=== PATIENT | female | born 1960 | race Caucasian/White ===

== ENCOUNTER 2020-04-12 10:56 | Outpatient (CLI) | payer BC, SELFPAY ==
--- NOTE | 2020-04-12 11:08 | MM_ITS ---
WS: [id number] BILATERAL SCREENING DIGITAL MAMMOGRAM WITH CAD HISTORY: SCREENING COMPARISON: 02/03/2019 and 07/31/2016 Bilateral CC and MLO views submitted. Computer aided detection analyzed. Breast composition: There are scattered areas of fibroglandular density. No suspicious masses, microc alcifications or architectural distortion. Benign calcifications. MM/[place] [id number] IMPRESSION: BI-RADS: 2-Benign FOLLOW UP: 1 Year Follow-up
== END 2020-04-12 10:57 | disposition home or self-care (01) ==
LOC: RADSHAW 11:00
PROVIDERS: Family Provider Nurse Practitioner Family; PCP Nurse Practitioner Family; Visit Provider Nurse Practitioner Family
DX: Z12.31 Encounter for screening mammogram for malignant neoplasm of breast (principal)
CPT/HCPCS: 77067

== ENCOUNTER 2020-10-29 11:42 | Outpatient (CLI) | payer BC, SELFPAY ==
--- NOTE | 2020-10-29 12:02 | XRR_ITS ---
PROCEDURE INFORMATION: Exam: XR Chest Exam date and time: 10/29/2020 12:02 PM Age: 60 years old Clinical indication: Condition or disease; Lung condition and disease; Patient HX: Pneumonia in left lung per PT, 3 weeks; Additional info: Asthmatic bronchitis TECHNIQUE: Imaging protocol: XR of the chest. Views: 2 views. COMPARISON: No relevant prior studies available. FINDINGS: Lungs: Unremarkable. No consolidation. Pleural spaces: Unremarkable. No pleural effusion. No pneumothorax. Heart/Mediastinum: Unremarkable. No cardiomegaly. Bones/joints: Unremarkable. There is a small hiatal hernia present. XR/XR chest 2V* [id number] IMPRESSION: No acute findings.
== END 2020-10-29 11:43 | disposition home or self-care (01) ==
LOC: RAD 11:49
PROVIDERS: PCP Nurse Practitioner Family; Visit Provider Nurse Practitioner Family
DX: J45.909 Unspecified asthma, uncomplicated (principal)
CPT/HCPCS: 71046

== ENCOUNTER 2021-04-08 11:37 | Emergency (ER) | payer BC, SELFPAY ==
[2021-04-08 12:05] VITALS: BP 124/65; PULSE 78; RESP 18; TEMP 37.1; O2SAT 99; BMI 27.8
[2021-04-08 13:06] LABS: Basophils % 0.6 %; Eosinophils # 0.1 10^3/uL (0.0-0.8); Eosinophils % 2.4 %; Hematocrit 34.8 % (37.0-47.0); Lymphocytes # 1.8 10^3/uL (0.8-4.8); Lymphocytes % 37.4 %; Mean Corpuscular HGB Conc 34.5 g/dL (30.0-36.0); Mean Corpuscular Hemoglobin 31.7 pg (28.0-34.0); Mean Corpuscular Volume 91.8 fl (81-99); Monocytes # 0.3 10^3/uL (0.2-0.9); Monocytes % 7.3 %; Neutrophils # 2.44 10^3/uL (1.8-7.7); Neutrophils % 52.1 %; Nucleated Red Blood Cells % 0 %; Platelet Count 189 10^3/cmm (130-400); Red Blood Count 3.79 10^6/uL (4.1-5.3); Red Cell Distribution Width 11.6 % (12.1-15.1); White Blood Count 4.7 10^3/uL (4.0-10.0)
[2021-04-08 13:19] LABS: Add Urine Microscopic? YES; Bilirubin Urine Neg (Negative); Blood Urine 3+ (Negative); Glucose Urine UA Norm (Normal); Ketones Urine 1+ (Negative); Leukocyte Esterase Urine 1+ (Negative); Nitrate Urine Positive (Negative); Protein Urine 3+ (Negative); Urine Appearance Cloudy (CLEAR); Urine Color Red (Yellow); Urobilinogen Urine 1 mg/dL (Negative); pH Urine 6.5 (5-7)
[2021-04-08 13:20] LABS: Add Urine Culture? Yes; Bacteria Urine 2+ /hpf; Mucus Urine TRACE /hpf; RBC Urine TOO NUMEROUS TO CNT /hpf (0-2)
[2021-04-08 13:23] LABS: INR 0.92 (0.8-1.2)
[2021-04-08 13:24] LABS: Partial Thromboplastin Time 26.7 SECONDS (23.9-36.7)
[2021-04-08 13:26] LABS: Alanine Aminotransferase 15 U/L (0-33); Albumin Level 3.8 g/dL (3.5-5.2); Alkaline Phosphatase 49 IU/L (35-105); Anion Gap 14.8 (5-19); Aspartate Amino Transferase 18 U/L (0-32); Blood Urea Nitrogen 10 mg/dL (6-20); Calcium 8.2 mg/dL (8.5-10.5); Carbon Dioxide 23 mmol/L (22-29); Chloride 103 mmol/L (98-107); Globulin 2.4 g/dL (1.3-4.6); Glomerular Filtration Rate 73.7 mL/min (90-130); Glucose 92 mg/dL (65-115); Osmolality Calculated 283 mOsm/kg (285-295); Potassium 3.8 mmol/L (3.5-5.1); Sodium 137 mmol/L (136-145); Total Bilirubin 0.2 mg/dL (0.15-1.2); Total Protein 6.2 g/dL (6.6-8.7)
--- NOTE | 2021-04-08 17:24 | PC.PHAR ---
pt states she takes care of her own medications-pt brought in med bottles-pt states she is no longer taking the phentermine 37.5mg daily ext med history shows last filled 03/13/21 30d/s-
--- NOTE | 2021-04-08 17:28 | W.ED.FEMALGU ---
HPI - Female Genitourinary General: Chief complaint: Vaginal Bleeding Stated complaint: EXCESSIVE VAGINAL BLEEDING/BACK PAIN Time Seen by Provider: 04/08/21 16:58 History of Present Illness: HPI Narrative: 52-year-old female presents emergency room complaining of menometrorrhagia this been going on for last 3 months. She is on lower doses of estradiol and progesterone. She continues to have heavy bleeding most of the time. She was trying to get the appointment moved up to called her primary care provider's office they advised her to go to the emergency room she not had any lightheadedness or dizziness. MD elicited complaint: vaginal bleeding and pelvic pain (Clamping) Onset (ago): month(s) Location of symptoms: vaginal Severity: moderate Quality of pain: cramping Vaginal discharge: none Vaginal bleeding: heavy Exacerbating factors: none Associated symptoms: Deny abdominal pain, short of breath, fevers/chills, headache(s), nausea, rash, seizures, syncope, vaginal discharge or weakness Treatment prior to arrival: other (Estradiol medroxyprogesterone) Review of Systems Const: Denies: fever(s), chills, body aches, change in appetite, fatigue or malaise ENMT: Denies: throat pain, ear or mastoid pain, nasal discharge or nasal congestion Card: Denies: syncope Resp: Denies: dyspnea, productive cough or non-productive cough GI: Denies: abdominal pain or nausea : Reports: vaginal bleeding and pelvic pain (Cramping); Denies: vaginal discharge Skin/Breast: Denies: rash or pruritus Neuro: Denies: headache(s) PFS ED PFSH: Medical History (Updated 04/11/21 @ 12:32 by Chad Harrison DO) Menometrorrhagia Social History (Updated 04/11/21 @ 12:32 by Chad Harrison DO) Smoking and tobacco status: never smoked Alcohol intake: current Alcohol intake frequency: 0-2 Drinks per Day Physical Exam Const: COMMON NORMALS: no acute distress GENERAL APPEARANCE: cooperative and comfortable ORIENTATION/CONSCIOUSNESS: Yes awake, Yes oriented to person, Yes oriented to place and Yes oriented to time HENMT: COMMON NORMALS: normocephalic, atraumatic and hearing grossly normal bilaterally HEAD & SCALP: normocephalic and atraumatic Neck/C-Spine: COMMON NORMALS: no JVD Resp: COMMON NORMALS: normal respiratory effort, No retractions, No use of accessory muscles and clear to auscultation bilaterally AUSCULTATION: clear to auscultation bilaterally Cardio: COMMON NORMALS: no JVD, regular rate, regular rhythm and No murmurs present (Cardio) RATE: regular rate RHYTHM: regular rhythm GI: COMMON NORMALS: Soft to palpation and No hepatosplenomegaly present AUSCULTATION: Yes normoactive bowel sounds PALPATION: Yes Soft to palpation, No Tenderness to palpation present (GI), No Guarding due to palpation present (GI) and Yes No hepatosplenomegaly present Extremity: COMMON NORMALS: normal to inspection, capillary refill normal, no clubbing, cyanosis or edema, no calf tenderness and no pedal edema Neuro: SENSORIUM/ORIENTATION: Yes oriented to person, Yes oriented to place and Yes oriented to time Skin: COMMON NORMALS: no rashes or lesions noted GENERAL SKIN EXAM: no rashes or lesions noted Course Vital Signs: Vital signs: Vital Signs Temperature 98.8 F 04/08/21 12:05 Pulse Rate 80 04/08/21 17:44 Respiratory Rate 16 04/08/21 17:44 Blood Pressure 119/70 04/08/21 17:44 Pulse Oximetry 96 04/08/21 17:44 MDM - Female MDM Narrative: Medical decision making narrative: Patient has menometrorrhagia for several months now. Continues to have a intermittent heavy bleeding. Initially best served by stopping the low-dose medroxyprogesterone estradiol and starting a 10-day course of medroxyprogesterone at 10 mg daily. Advised her if she did not have cessation of bleeding within 3 days to increase to 20 mg daily rating 110 mg tablet twice daily. We will set her up for an outpatient pelvic ultrasound and referral to gynecology for further evaluation she is worsening problems return. Reviewed labs on the chart patient has no sign of anemia at this point. Lab Data: Labs: Lab Results 04/08/21 04/08/21 04/08/21 12:13 12:30 12:30 WBC 4.7 10^3/uL 10^3/ uL (4.0-10.0) RBC 3.79 10^6/uL L 10 ^6/uL (4.1-5.3) Hgb 12.0 g/dL g/dL (11.5-15.3) Hct 34.8 % L % (37.0-47.0) MCV 91.8 fl fl (81-99) MCH 31.7 pg pg (28.0-34.0) MCHC 34.5 g/dL g/dL (30.0-36.0) RDW 11.6 % L % (12.1-15.1) Plt Count 189 10^3/cmm 10^3 /cmm (130-400) MPV 10.0 fL fL (7.4-10.4) Neut % (Auto) 52.1 % % Lymph % (Auto) 37.4 % % [place] % (Auto) 7.3 % % Eos % (Auto) 2.4 % % Baso % (Auto) 0.6 % % Neut # (Auto) 2.44 10^3/uL 10^3 /uL (1.8-7.7) Lymph # (Auto) 1.8 10^3/uL 10^3/ uL (0.8-4.8) [place] # (Auto) 0.3 10^3/uL 10^3/ uL (0.2-0.9) Eos # (Auto) 0.1 10^3/uL 10^3/ uL (0.0-0.8) Baso # (Auto) 0.0 10^3/uL 10^3/ uL (0.0-0.1) Nucleated RBC % (a uto) 0 % % Nucleated RBCs # 0.0 /100WBC /100W BC PT 12.70 SECONDS SEC ONDS (12.1-14.9) INR 0.92 (0.8-1.2) APTT 26.7 SECONDS SECO NDS (23.9-36.7) Sodium Potassium Chloride Carbon Dioxide Anion Gap BUN Creatinine GFR Calculation Glucose Calculated Osmolal ity Calcium Total Bilirubin AST ALT Alkaline Phosphata se Total Protein Albumin Globulin Urine Color Red (Yellow) Urine Appearance Cloudy (CLEAR) Urine pH 6.5 (5-7) Ur Specific Gravit y 1.020 (1.005-1.030) Urine Protein 3+ H (Negative) Urine Glucose (UA) Norm (Normal) Urine Ketones 1+ H (Negative) Urine Blood 3+ H (Negative) Urine Nitrate Positive H (Negative) Urine Bilirubin Neg (Negative) Urine Urobilinogen 1 mg/dL H mg/dL (Negative) Ur Leukocyte [place] ase 1+ H (Negative) Urine RBC Too numerous to c nt /hpf H /hpf (0-2) Urine WBC 5-10 /hpf H /hpf (0-5) Ur Squamous Epith Cells 5-10 /hpf H /hpf (0-5) Amorphous Sediment Not Reportable Urine Bacteria 2+ /hpf H /hpf (NONE) Urine Mucus Trace /hpf /hpf 04/08/21 12:30 WBC RBC Hgb Hct MCV MCH MCHC RDW Plt Count MPV Neut % (Auto) Lymph % (Auto) [place] % (Auto) Eos % (Auto) Baso % (Auto) Neut # (Auto) Lymph # (Auto) [place] # (Auto) Eos # (Auto) Baso # (Auto) Nucleated RBC % (a uto) Nucleated RBCs # PT INR APTT Sodium 137 mmol/L mmol/L (136-145) Potassium 3.8 mmol/L mmol/L (3.5-5.1) Chloride 103 mmol/L mmol/L (98-107) Carbon Dioxide 23 mmol/L mmol/L (22-29) Anion Gap 14.8 (5-19) BUN 10 mg/dL mg/dL (6-20) Creatinine 0.8 mg/dL mg/dL (0.5-0.9) GFR Calculation 73.7 mL/min L mL/ min (90-130) Glucose 92 mg/dL mg/dL (65-115) Calculated Osmolal ity 283 mOsm/kg L mOs m/kg (285-295) Calcium 8.2 mg/dL L mg/dL (8.5-10.5) Total Bilirubin 0.2 mg/dL mg/dL (0.15-1.2) AST 18 U/L U/L (0-32) ALT 15 U/L U/L (0-33) Alkaline Phosphata se 49 IU/L IU/L (35-105) Total Protein 6.2 g/dL L g/dL (6.6-8.7) Albumin 3.8 g/dL g/dL (3.5-5.2) Globulin 2.4 g/dL g/dL (1.3-4.6) Urine Color Urine Appearance Urine pH Ur Specific Gravit y Urine Protein Urine Glucose (UA) Urine Ketones Urine Blood Urine Nitrate Urine Bilirubin Urine Urobilinogen Ur Leukocyte [place] ase Urine RBC Urine WBC Ur Squamous Epith Cells Amorphous Sediment Urine Bacteria Urine Mucus Discharge Plan Discharge Patient Disposition: Home Clinical Impression: Menometrorrhagia Condition: Stable Prescriptions: New medroxyprogesterone 10 mg tablet 10 mg PO DAILY 10 Days Qty: 20 RF: 0 Discontinued medroxyprogesterone 2.5 mg tablet 2.5 mg PO QAM RF: 0 estradiol 1 mg tablet 1 mg PO QAM RF: 0 No Action multivitamin Tablet 1 tab PO DAILY RF: 0 oxybutynin chloride 15 mg tablet extended release 24 hr 15 mg PO QAM RF: 0 cetirizine 10 mg tablet 10 mg PO QAM RF: 0 pantoprazole 40 mg tablet,delayed release (DR/EC) 40 mg PO QAM RF: 0 albuterol sulfate 90 mcg/actuation HFA aerosol inhaler 2 puff INHALATION Q4H PRN (Reason: Shortness Of Breath) RF: 0 fluticasone propionate 50 mcg/actuation spray,suspension 2 spray INTRANASAL DAILY PRN (Reason: Allergy Symptoms) RF: 0 Tylenol Ex Str Rapid Release 500 mg Tablet 1,000 mg PO Q4H PRN (Reason: Pain) RF: 0 ibuprofen 200 mg Tablet 1,200 mg PO QAM PRN (Reason: Pain) RF: 0 Discharge Orders: Discharge ED (Routine); Ordered 04/08/21 Ordered By: Chad Harrison Referrals: Sara Milligan APN [Primary Care Provider] - Patient Instructions: Opioid Safety Activity Restrictions/Additional Instructions: software implementation project manager will make arrangements for you to have a pelvic ultrasound and a referral to gynecology. Coding Level of Care Code ED Manager Hardware for Ondina Encarnacion
[2021-04-08 17:44] VITALS: BP 119/70; PULSE 80; RESP 16; O2SAT 96
--- NOTE | 2021-04-10 13:53 | DCPLANNER ---
distribution warehouse manager had message to schedule a follow up appointment for patient with [facility]. distribution warehouse manager called [facility], spoke with [facility], gave clinic patients information. distribution warehouse manager was told that patients information would be printed and reviewed. Clinic will call patient with appointment information. distribution warehouse manager also had message to schedule an out patient pelvic ultrasound. distribution warehouse manager faxed signed order to centralized scheduling, who will call patient with appointment information.
--- NOTE | 2021-04-23 08:20 | DCPLANNER ---
Patient has an appointment scheduled for Wednesday, May 05, 2021 at 8:[address] Rose at [facility]. Clinic will call patient with appointment information.
--- NOTE | 2021-05-08 07:07 | DCPLANNER ---
Addendum entered by Kirsten Grimm 05/29/21 15:13: Patient had an outpatient US scheduled for 05.13.21 - patient did attend appointment. Original Note: Patient had a follow up appointment scheduled for 05.05.[address] Rose at [facility] - patient did attend appointment. Patient has a pelvic ultrasound scheduled for Thursday, May 13, 2021 at 3:30, centralized scheduling will call patient with appointment information.
== END 2021-04-08 17:45 | disposition home or self-care (01) ==
PROVIDERS: Physician Assistant; Emergency Provider Family Medicine; PCP Nurse Practitioner Family
DX: N92.1 Excessive and frequent menstruation with irregular cycle (principal)
CPT/HCPCS: 80053; 81001; 85025; 85610; 85730; 87077; 87086; 87186; 99283

== ENCOUNTER → 2021-05-05 09:33 | Outpatient (BNVA) | payer BC, SELFPAY | PROVIDERS: PCP Nurse Practitioner Family; Referring Provider Nurse Practitioner Family; Visit Provider Obstetrics & Gynecology | DX: Z12.4 Encounter for screening for malignant neoplasm of cervix (principal); N95.0 Postmenopausal bleeding | CPT/HCPCS: 87624; 88305 ==

== ENCOUNTER → 2021-05-13 15:17 | Outpatient (BNVA) | payer BC, SELFPAY | PROVIDERS: PCP Nurse Practitioner Family; Visit Provider Obstetrics & Gynecology | DX: N95.0 Postmenopausal bleeding (principal) | CPT/HCPCS: 76830 ==

== ENCOUNTER → 2021-05-31 11:17 | Outpatient (BNVA) | payer BC, SELFPAY | PROVIDERS: PCP Nurse Practitioner Family; Visit Provider Registered Nurse Neonatal Intensive Care | DX: Z20.822 Contact with and (suspected) exposure to COVID-19 (principal); N95.0 Postmenopausal bleeding | CPT/HCPCS: 87635 ==

== ENCOUNTER 2021-06-03 09:55 | Day surgery (SDC) | payer BC, SELFPAY ==
[2021-06-02 15:35] VITALS: BMI 27.8
[2021-06-03 10:17] VITALS: BP 91/64; PULSE 70; RESP 18; TEMP 36.1; O2SAT 99
[2021-06-03] MEDS: sodium chloride 0.9% 1,000 ML 30 ML IV (10:31)
[2021-06-03 10:50] LABS: Basophils % 0.7 %; Eosinophils # 0.1 10^3/uL (0.0-0.8); Eosinophils % 1.2 %; Hematocrit 33.7 % (37.0-47.0); Hemoglobin 10.2 g/dL (11.5-15.3); Lymphocytes % 47.7 %; Mean Corpuscular HGB Conc 30.3 g/dL (30.0-36.0); Mean Corpuscular Hemoglobin 24.9 pg (28.0-34.0); Mean Corpuscular Volume 82.4 fl (81-99); Mean Platelet Volume 10.4 fL (7.4-10.4); Monocytes # 0.3 10^3/uL (0.2-0.9); Monocytes % 6.2 %; Neutrophils # 1.83 10^3/uL (1.8-7.7); Nucleated Red Blood Cells % 0 %; Platelet Count 244 10^3/cmm (130-400); Red Blood Count 4.09 10^6/uL (4.1-5.3); Red Cell Distribution Width 14.6 % (12.1-15.1); White Blood Count 4.2 10^3/uL (4.0-10.0)
--- NOTE | 2021-06-03 11:57 | ANES.PREANE2 ---
Pre-Anesthetic Assessment Height/Weight: Height 1.6 m Weight 71.214 kg Temp Pulse Resp BP Pulse Ox 97 F L 70 18 91/64 99 06/03/21 10:17 06/03/21 10:17 06/03/21 10:17 06/03/21 10:17 06/03/21 10:17 Preop Diagnosis: PMB Operation Date: 06/03/21 10:35 Proposed Procedures p Hysteroscopy w/ Myosure 58198/35607/n95.0(Not Applicable) - Justine Rose MD s Dilation And Curettage (D&C)(Not Applicable) - Justine Rose MD Familial anesthetic complications: PONV after colonoscopy Was Beta Lizbeth taken within 24 hours: N/A Was Clonidine taken within 24 hours: N/A Last intake: Intake Last Liquid Date 06/02/21 Last Liquid Time 20:00 Last Solid Date 06/02/21 Last Solid Time 17:30 Social No alcohol and No tobacco Exam alert, oriented x 3, clear to auscultation bilaterally and regular rate & rhythm Airway Mallampati: Class II Dentition: full GI Hiatal hernia - patient states she gets quite severe GERD at night laying flat. Anesthetic Plan ASA status: 2 Anesthesia: General Other: ETT for hiatal hernia w/ symptomatic GERD with recumbent positioning Medications/Allergies Home Medications Medication Instructions Recorded Confirmed Last Taken Type acetaminophen 500 mg tablet 1,000 mg PO Q4H PRN 04/08/21 06/03/21 06/01/21 History multivitamin 1 tab PO DAILY 04/08/21 06/03/21 06/02/21 History oxybutynin chloride 15 mg 15 mg PO QAM 04/08/21 06/03/21 06/02/21 History tablet,extended release 24 hr pantoprazole 40 mg tablet,delayed 40 mg PO QAM 04/08/21 06/03/21 06/02/21 History release medroxyprogesterone 10 mg tablet 10 mg PO DAILY 05/05/21 06/03/21 06/02/21 History Allergies Allergy/AdvReac Type Severity Reaction Status Date / Time propofol Allergy Severe ADR-Nausea Verified 06/03/21 10:11 azithromycin Allergy Unknown Verified 06/03/21 10:11 naproxen Allergy Unknown Verified 06/03/21 10:11 Current Medications Generic Name Dose Route Start Last Admin Trade Name Ric PRN Reason Stop Dose Admin Sodium Chloride 1,000 mls @ 30 mls/hr 06/03/21 10:15 06/03/21 10:31 Sodium Chloride 0.9% IV 06/04/21 10:14 30 mls/hr .Q24H ASHLEIGH Administration PFSH Anesthesia Medical History Hypercholesteremia Menometrorrhagia No pertinent past medical history Surgical History History of bilateral tubal ligation at age 23 Family History Mother Cancer Colon Clotting disorder Family/Other Diabetes Paternal aunts and uncles Brother Hypertension Denies family history of CAD (coronary artery disease) Hyperlipidemia Chronic kidney disease (CKD) Bleeding disorder Stroke Female Reproductive History Date of last menstrual period: 03/26/21 Data Anesthesia : 06/03/21 10:30 06/03/21 10:30 Short CBC 06/03/21 Range/Units 10:30 WBC 4.2 (4.0-10.0) 10^3/uL Hgb 10.2 L (11.5-15.3) g/dL Hct 33.7 L (37.0-47.0) % MCV 82.4 (81-99) fl Plt Count 244 (130-400) 10^3/cmm Neut % (Auto) 44.0 % Neut # (Auto) 1.83 (1.8-7.7) 10^3/uL Blood Bank 06/03/21 10:38 Blood Type O Positive Rho(D) Type Positive Antibody Screen Negative Cardiac Studies: No Data to Display
--- NOTE | 2021-06-03 12:18 | W.PM.OPSUD ---
Surgery/Procedure H&P Update DATE OF PROCEDURE: June 03, 2021 DATE H&P PERFORMED: 05/15/21 H&P UPDATE INFORMATION: I have reviewed H&P completed within last 30 days, I have examined patient prior to procedure and No changes to prior documentation PREOP DIAGNOSIS: PMB PLANNED PROCEDURE: Operation Date: 06/03/21 10:35 Proposed Procedures p Hysteroscopy w/ Myosure 97794/36815/n95.0(Not Applicable) - Justine Rose MD s Dilation And Curettage (D&C)(Not Applicable) - Justine Rose MD Related Problem List Diagnoses (1) PMB (postmenopausal bleeding):
[2021-06-03 14:50] VITALS: BP 110/69; PULSE 84; RESP 20; TEMP 36.6; O2SAT 99
[2021-06-03 14:55] VITALS: BP 111/57; PULSE 80; RESP 18; O2SAT 96
--- NOTE | 2021-06-03 14:59 | P.OP_ITS ---
Operative Report Date of procedure: June 03, 2021 Pre-op diagnosis: Preop Diagnosis PMB Post-op diagnosis: same Post-op findings: uterine leiomyoma Procedure done: hysteroscopy, dilation and curettage with myosure Specimens removed/disposition: endometrial curettings to pathology Surgeon: Justine Rose Anesthesia: MAC Estimated blood loss (mL): 5 IV fluids (mL): 700 Urine output (mL): 0 Complications: none Findings: 8 week sized uterus with anterior and posterior fibroids Procedure: The patient was taken to the operating room where monitored anesthesia was administered and to be adequate. She was prepped and draped in the normal sterile fashion in the dorsal lithotomy position in [facility]. A weighted speculum was placed into the vagina and the anterior lip of the cervix grasped with a single-tooth tenaculum. The uterus was sounded to 8 cm. The cervix was dilated to 16 [place]. The hysteroscope was advanced into the endometrial cavity. There was an anterior and posterior fibroid visualized. The MyoSure device was activated and the tissue was removed. Pictures were taken pre and post procedure. All instruments were removed. The patient tolerated the procedure well. Sponge lap and needle counts were correct x3. She was taken to the recovery room in stable condition.
[2021-06-03 15:00] VITALS: BP 129/51; PULSE 75; RESP 18; TEMP 36.6; O2SAT 100
--- NOTE | 2021-06-03 15:05 | P.DS_ITS ---
Discharge Providers Date of Admission: 06/03/21 Date of Discharge: June 03, 2021 Attending Provider at Admission: Milton Attending Provider at Discharge: Justine Rose MD Primary Care Provider: Sara Milligan APN Diagnoses at Discharge Discharge Diagnosis (1) PMB (postmenopausal bleeding): Status: Acute Reason for Visit Reason for Visit: postmenopausal bleeding Hospital Course Hospital Course The patient was admitted for surgery. She did well postoperatively and was ready for discharge Discharge Data Studies Completed and Pending Pending at discharge Category Date Time Status ES surgery / GI images Routine Exams 06/03/21 11:32 Taken Pathology: Surgical [PTH] Routine Pth 06/03/21 14:53 Ordered Laboratory Results WBC 4.2 10^3/uL (4.0-10.0) 06/03/21 10:30 RBC 4.09 10^6/uL (4.1-5.3) L 06/03/21 10:30 Hgb 10.2 g/dL (11.5-15.3) L 06/03/21 10:30 Hct 33.7 % (37.0-47.0) L 06/03/21 10:30 MCV 82.4 fl (81-99) 06/03/21 10:30 MCH 24.9 pg (28.0-34.0) L 06/03/21 10:30 MCHC 30.3 g/dL (30.0-36.0) 06/03/21 10:30 RDW 14.6 % (12.1-15.1) 06/03/21 10:30 Plt Count 244 10^3/cmm (130-400) 06/03/21 10:30 MPV 10.4 fL (7.4-10.4) 06/03/21 10:30 Neut % (Auto) 44.0 % 06/03/21 10:30 Lymph % (Auto) 47.7 % 06/03/21 10:30 [place] % (Auto) 6.2 % 06/03/21 10:30 Eos % (Auto) 1.2 % 06/03/21 10:30 Baso % (Auto) 0.7 % 06/03/21 10:30 Neut # (Auto) 1.83 10^3/uL (1.8-7.7) 06/03/21 10:30 Lymph # (Auto) 2.0 10^3/uL (0.8-4.8) 06/03/21 10:30 [place] # (Auto) 0.3 10^3/uL (0.2-0.9) 06/03/21 10:30 Eos # (Auto) 0.1 10^3/uL (0.0-0.8) 06/03/21 10:30 Baso # (Auto) 0.0 10^3/uL (0.0-0.1) 06/03/21 10:30 Nucleated RBC % (auto) 0 % 06/03/21 10:30 Nucleated RBCs # 0.0 /100WBC 06/03/21 10:30 Sodium Cancelled 06/03/21 10:30 Potassium Cancelled 06/03/21 10:30 Chloride Cancelled 06/03/21 10:30 Carbon Dioxide Cancelled 06/03/21 10:30 Anion Gap Cancelled 06/03/21 10:30 BUN Cancelled 06/03/21 10:30 Creatinine Cancelled 06/03/21 10:30 GFR Calculation Cancelled 06/03/21 10:30 Glucose Cancelled 06/03/21 10:30 Calculated Osmolality Cancelled 06/03/21 10:30 Calcium Cancelled 06/03/21 10:30 Blood Type O Positive 06/03/21 10:38 Rho(D) Type Positive 06/03/21 10:38 Antibody Screen Negative 06/03/21 10:38 Vitals Last Vital Signs Temp 97.8 F 06/03/21 15:00 Pulse 75 06/03/21 15:00 Resp 18 06/03/21 15:00 BP 129/51 06/03/21 15:00 Pulse Ox 100 06/03/21 15:00 Discharge Plan Discharge Patient Disposition: Home Condition: Stable Prescriptions: Continued medroxyprogesterone 10 mg tablet 10 mg PO DAILY 0RF multivitamin Tablet 1 tab PO DAILY 0RF oxybutynin chloride 15 mg tablet extended release 24 hr 15 mg PO QAM 0RF pantoprazole 40 mg tablet,delayed release (DR/EC) 40 mg PO QAM 0RF acetaminophen 500 mg Tablet 1,000 mg PO Q4H PRN (Reason: Pain) 0RF Discharge Orders: Discharge Order (Routine); Ordered 06/03/21 Ordered By: Justine Rose Discharge Attestations Time Spent in Discharge Care*: less than 30 min Quality Metrics Clinical Quality Measures [ No reported AMI, CVA or VTE this stay] Coding Level of Care Code Acute Chg FW DC note Diagnoses PMB (postmenopausal bleeding) N95.0
[2021-06-03 15:14] VITALS: BP 103/65; PULSE 69; RESP 18; TEMP 36.6; O2SAT 99
--- NOTE | 2021-06-03 15:28 | ANE.PACU2 ---
Inpatient post-anesthesia follow up: Airway intact: Yes Vital signs: Temperature 97.9 F Pulse Rate 69 Respiratory Rate 18 Blood Pressure 103/65 Pulse Oximetry 99 Oxygen Delivery Me thod Room Air Oxygen Flow Rate Fraction of Inspir ed Oxygen Hydration adequate: Yes Nausea and vomiting: No Pain level: 2 Mental status: Baseline
[2021-06-03 15:36] VITALS: BP 117/61; PULSE 64; RESP 18; O2SAT 100
== END 2021-06-03 15:47 | disposition home or self-care (01) ==
PROVIDERS: PCP Nurse Practitioner Family; Visit Provider Obstetrics & Gynecology
PROC: 0UDB8ZZ Extraction of Endometrium, Via Natural or Artificial Opening Endoscopic (ICD-10-PCS; CPT 58558; principal; 2021-06-03 10:25)
PROC: (CPT 58120; 2021-06-03 10:25)
DX: D25.9 Leiomyoma of uterus, unspecified (principal); N95.0 Postmenopausal bleeding; K21.9 Gastro-esophageal reflux disease without esophagitis; E78.00 Pure hypercholesterolemia, unspecified
CPT/HCPCS: 58558; 36415; 85025; 86850; 86900; 88305; 96365; J0690; J1100; J1200; J1885; J2405; J2704; J3010; J7030

== ENCOUNTER 2021-10-20 05:45 | Day surgery (SDC) | payer BC, SELFPAY ==
[2021-10-16 14:11] VITALS: BMI 28.3
[2021-10-20 06:31] VITALS: BP 125/81; PULSE 82; RESP 18; TEMP 36.2; O2SAT 96
[2021-10-20] MEDS: sodium chloride 0.9% 1,000 ML 30 ML IV (06:39)
--- NOTE | 2021-10-20 07:17 | W.PM.OPSFHP ---
Same Day Surgery H&P Indication for Procedure/HPI DATE OF PROCEDURE: October 20, 2021 CHIEF COMPLAINT/INDICATIONFOR SURGICAL PROCEDURE: Family history of colon cancer PREOP DIAGNOSIS: CP and FH PLANNED PROCEDURE: Operation Date: 10/20/21 07:45 Proposed Procedures p EGD and coloscopy 86641,90003,Z80.0,R07.89(Not Applicable) - Ramses Posada MD s Colonoscopy(Not Applicable) - Ramses Posada MD Medications/Allergies* Home Medications Medication Instructions Recorded Confirmed Type pantoprazole 40 mg tablet,delayed 40 mg PO QAM 04/08/21 10/16/21 History release acetaminophen 300 mg-codeine 30 mg 1 tab PO Q4H PRN 09/09/21 10/16/21 History tablet albuterol sulfate 90 mcg/actuation 2 puff INHALATION Q6H PRN 09/09/21 10/16/21 History aerosol inhaler cetirizine 10 mg tablet (All Day 10 mg PO DAILY 09/09/21 10/16/21 History Allergy (cetirizine)) fluticasone propionate 50 2 spray INTRANASAL DAILY PRN 09/09/21 10/16/21 History mcg/actuation nasal spray,suspension (Allergy Relief (fluticasone)) ondansetron 4 mg disintegrating 4 mg PO Q4H PRN tab 09/09/21 10/16/21 History tablet vitamin with calcium 1 tab PO DAILY 09/09/21 10/16/21 History no.72-iron 27 mg-folic acid 1 mg tablet (M-Nigel Plus) epinephrine 0.3 mg/0.3 mL 0.3 mg IM Q4H PRN 09/25/21 10/16/21 History injection, auto-injector oxybutynin chloride 15 mg 15 mg PO DAILY 09/25/21 10/16/21 History tablet,extended release 24 hr Allergies/Adverse Reactions Allergy/AdvReac Type Severity Reaction Status Date / Time propofol Allergy Severe ADR-Nausea Verified 09/25/21 08:45 azithromycin Allergy Unknown Verified 09/25/21 08:45 naproxen Allergy Unknown Verified 09/25/21 08:45 Current Medications: Generic Name Dose Route Start Last Admin Trade Name Freq PRN Reason Stop Dose Admin Sodium Chloride 1,000 mls @ 30 mls/hr 10/20/21 06:00 10/20/21 06:39 Sodium Chloride 0.9% IV 10/21/21 05:59 30 mls/hr .Q24H ASHLEIGH Administration Pertinent History/Comorbid Conditions* Medical History (Updated 09/25/21 @ 09:40 by Ramses Posada MD) Hypercholesteremia Menometrorrhagia No pertinent past medical history Surgical History (Updated 05/08/21 @ 12:36 by Justine Rose MD) History of bilateral tubal ligation at age 23 Family History (Updated 05/05/21 @ 08:25 by Merced Choe LPN) Diabetes Family/Other Paternal aunts and uncles Clotting disorder Mother Cancer Mother Colon Hypertension Brother Denies family history of CAD (coronary artery disease) Hyperlipidemia Chronic kidney disease (CKD) Bleeding disorder Stroke Social History Smoking and tobacco status: never smoked Pertinent Exam Findings alert, oriented x 3, clear to auscultation bilaterally, regular rate & rhythm, operative site marked and procedure specific exam findings Recommendations Surgery/Procedure today Coding Level of Care Code Acute Residence Supervisor for Ondina Encarnacion
--- NOTE | 2021-10-20 07:39 | ANES.PREANE2 ---
Pre-Anesthetic Assessment Height/Weight: Height 1.6 m Weight 72.575 kg Temp Pulse Resp BP Pulse Ox 97.2 F L 82 18 125/81 96 10/20/21 06:31 10/20/21 06:31 10/20/21 06:31 10/20/21 06:31 10/20/21 06:31 Preop Diagnosis: CP and FH Operation Date: 10/20/21 07:45 Proposed Procedures p EGD and coloscopy [id number],Z80.0,R07.89(Not Applicable) - Ramses Posada MD s Colonoscopy(Not Applicable) - Ramses Posada MD Familial anesthetic complications: PONV w/ a previous colonoscopy Was Beta Lizbeth taken within 24 hours: N/A Was Clonidine taken within 24 hours: N/A Last intake: Intake Last Liquid Date 10/19/21 Last Liquid Time 23:00 Last Solid Date 10/18/21 Last Solid Time 19:00 Social No alcohol and No tobacco Exam alert, oriented x 3, clear to auscultation bilaterally and regular rate & rhythm Airway Mallampati: Class II Dentition: full CV/HEM Stable Angina (? Non-cardiac) GI Gastroesophageal Reflux Disease Anesthetic Plan ASA status: 2 Anesthesia: MAC Risk of > 500 ml blood loss (7ml/kg in children): No Medications/Allergies Home Medications Medication Instructions Recorded Confirmed Last Taken Type pantoprazole 40 mg tablet,delayed 40 mg PO QAM 04/08/21 10/16/21 10/18/21 History release acetaminophen 300 mg-codeine 30 mg 1 tab PO Q4H PRN 09/09/21 10/16/21 10/19/21 History tablet albuterol sulfate 90 mcg/actuation 2 puff INHALATION Q6H PRN 09/09/21 10/16/21 10/18/21 History aerosol inhaler cetirizine 10 mg tablet (All Day 10 mg PO DAILY 09/09/21 10/16/21 10/18/21 History Allergy (cetirizine)) fluticasone propionate 50 2 spray INTRANASAL DAILY PRN 09/09/21 10/16/21 10/18/21 History mcg/actuation nasal spray,suspension (Allergy Relief (fluticasone)) ondansetron 4 mg disintegrating 4 mg PO Q4H PRN tab 09/09/21 10/16/21 10/18/21 History tablet vitamin with calcium 1 tab PO DAILY 09/09/21 10/16/21 10/18/21 History no.72-iron 27 mg-folic acid 1 mg tablet (M-Nigel Plus) epinephrine 0.3 mg/0.3 mL 0.3 mg IM Q4H PRN 09/25/21 10/16/21 10/18/21 History injection, auto-injector oxybutynin chloride 15 mg 15 mg PO DAILY 09/25/21 10/16/21 10/18/21 History tablet,extended release 24 hr Allergies Allergy/AdvReac Type Severity Reaction Status Date / Time propofol Allergy Severe ADR-Nausea Verified 09/25/21 08:45 azithromycin Allergy Unknown Verified 09/25/21 08:45 naproxen Allergy Unknown Verified 09/25/21 08:45 Current Medications Generic Name Dose Route Start Last Admin Trade Name Freq PRN Reason Stop Dose Admin Sodium Chloride 1,000 mls @ 30 mls/hr 10/20/21 06:00 10/20/21 06:39 Sodium Chloride 0.9% IV 10/21/21 05:59 30 mls/hr .Q24H ASHLEIGH Administration PFSH Anesthesia Medical History Hypercholesteremia Menometrorrhagia No pertinent past medical history Surgical History History of bilateral tubal ligation at age 23 Family History Mother Cancer Colon Clotting disorder Family/Other Diabetes Paternal aunts and uncles Brother Hypertension Denies family history of CAD (coronary artery disease) Hyperlipidemia Chronic kidney disease (CKD) Bleeding disorder Stroke Social History Smoking and tobacco status: never smoked Female Reproductive History Date of last menstrual period: 04/26/14 Data Anesthesia Cardiac Studies: No Data to Display
[2021-10-20 08:29] VITALS: BP 91/64; PULSE 63; RESP 16; TEMP 36.1; O2SAT 98
--- NOTE | 2021-10-20 08:32 | ANE.PACU2 ---
Inpatient post-anesthesia follow up: Airway intact: Yes Vital signs: Temperature 97.2 F Pulse Rate 82 Respiratory Rate 18 Blood Pressure 125/81 Pulse Oximetry 96 Oxygen Delivery Me thod Room Air Oxygen Flow Rate Fraction of Inspir ed Oxygen Hydration adequate: Yes Nausea and vomiting: No Pain level: 1 Mental status: Baseline
[2021-10-20 08:34] VITALS: BP 92/62; PULSE 59; RESP 18; O2SAT 96
[2021-10-20 08:44] VITALS: BP 108/59; PULSE 62; RESP 18; O2SAT 100
[2021-10-21 12:48] LABS: H. Pylori / CLO Test Negative
== END 2021-10-20 09:10 | disposition home or self-care (01) ==
PROVIDERS: PCP Nurse Practitioner Family; Visit Provider Internal Medicine
PROC: 0DJ08ZZ Inspection of Upper Intestinal Tract, Via Natural or Artificial Opening Endoscopic (ICD-10-PCS; CPT 43235; principal; 2021-10-20 07:45)
PROC: 0DJD8ZZ Inspection of Lower Intestinal Tract, Via Natural or Artificial Opening Endoscopic (ICD-10-PCS; CPT 45378; 2021-10-20 07:45)
DX: K29.70 Gastritis, unspecified, without bleeding (principal); K44.9 Diaphragmatic hernia without obstruction or gangrene; Z80.0 Family history of malignant neoplasm of digestive organs; E78.00 Pure hypercholesterolemia, unspecified
CPT/HCPCS: 43239; 45378; 87077; J1100; J1200; J2405; J2704; J7030

== ENCOUNTER 2021-10-22 04:34 | Emergency (ER) | payer BC, SELFPAY ==
--- NOTE | 2021-10-22 | USR_ITS ---
[facility] Final Radiology Report Call: [phone] assistance Online chat: [email or web address] Name: JACEY NOVAK Age: 61Years F Date: 10/22/2021 SSN: [id number] : 1960 Study: US ABDOMEN LTD Requesting Physician: MAYDA EMERSON Images: 63 Add?l Studies: Provided Clinical History: chronic chest pain x 1 yr. diagnosed with hiatal hernia. She had recent colonoscopy and UGI, negative PROCEDURE INFORMATION: Exam: US Abdomen, Limited; Right Upper Quadrant Exam date and time: 10/22/2021 5:17 AM Age: 61 years old Clinical indication: Patient HX: Chronic chest pain x 1 yr. Diagnosed with hiatal hernia. She had recent colonoscopy and ugi, negative TECHNIQUE: Imaging protocol: Real time ultrasound of the abdomen with image documentation. Limited exam focused on the right upper quadrant. COMPARISON: ES surgery / GI images 06/03/2021 1:58 PM FINDINGS: Liver: The liver measures 16.1 cm in the midclavicular plane. The liver demonstrates increased echogenicity with decreased visualization of periportal fat without sound attenuation. Gallbladder: Dependent echogenic non-shadowing intraluminal density is present in the nondistended gallbladder. The gallbladder wall measures 2.3 mm. No gallstones. The sonographic Melgar sign is negative. Biliary ducts: The common hepatic duct measures 3.0 mm. The common bile duct measures 3.9 mm. No ductal calculi as visualized. Pancreas: Unremarkable pancreas. The pancreatic duct measures 3.2 mm. Right kidney: The right kidney measures 10.4 x 4.7 x 4.5 cm. The renal cortex measures 1.1 cm. Unremarkable. A brief color Doppler examination of the right kidney was performed showing normal color shifts. Aorta: The proximal abdominal aorta measures 2.8 cm. The mid abdominal aorta measures 2.4 cm. The distal infrarenal abdominal aorta measures 2.2 cm. No aneurysm. Inferior vena cava: Unremarkable IVC. Portal venous: The main portal vein measures 12.1 mm. A brief color and pulsed Doppler examination of the portal vein was performed showing normal hepatopedal flow. Hepatic veins: A brief color and pulsed Doppler examination of the hepatic veins was performed, demonstrating normal antegrade triphasic waveforms. IMPRESSION: 1. Mild fatty infiltration of the liver. 2. Gallbladder sludge. Thank you for allowing us to participate in the care of your patient. Dictated and Authenticated by: Ang Parrish MD 10/22/2021 8:03 AM Central Time ([place] & [place]) LYLE
--- NOTE | 2021-10-22 04:39 | W.ED.ABDPA2 ---
Documented by User: Berenice Hogan MD 10/22/21 18:14 HPI - Abdominal Pain General: Chief Complaint: Abdominal Pain Stated Complaint: ABD PAIN Time Seen by Provider: 10/22/21 04:34 Source: patient and EMS Mode of arrival: EMS Limitations: no limitations History of Present Illness: 61-year-old female who states she has been having intermittent abdominal pains for over a year now. States she is recently been following with Dr. Posada had a colonoscopy on Wednesday and has been scheduled to have an outpatient ultrasound of her gallbladder as she thinks it may be her gallbladder. She states that tonight she awoke roughly 3 hours ago with right upper quadrant pain that radiated to her shoulder. States pain was sharp in nature and originally an 8 out of 10. She had some nausea denies any vomiting. Patient denies any fevers. Patient is received pain meds in route and she states her pain is now a 0 out of 10. She denies any chest pain currently. Associated Symptoms: Denies chills, dysuria and fever(s) Related Data: Date of Last Menstrual Period: 04/26/14 Review of Systems Const: Denies: fever(s), chills, body aches or change in appetite Eyes: Denies: blurry vision or eye discomfort ENMT: Denies: throat pain or dental pain Card: Denies: chest pain Resp: Denies: dyspnea GI: Reports: abdominal pain : Denies: dysuria Musc: Denies: neck pain or back pain Skin/Breast: Denies: rash Neuro: Denies: headache(s) Psych: Denies: depression Luis Alfredo/Lymph: Denies: easy bruising All/Imm: Denies: urticaria PFSH ED PFSH: Medical History Hypercholesteremia Menometrorrhagia No pertinent past medical history Surgical History History of bilateral tubal ligation at age 23 Family History Mother Cancer Colon Clotting disorder Family/Other Diabetes Paternal aunts and uncles Brother Hypertension Denies family history of CAD (coronary artery disease) Hyperlipidemia Chronic kidney disease (CKD) Bleeding disorder Stroke Social History Smoking and tobacco status: never smoked Female Reproductive History: Date of last menstrual period: 04/26/14 Physical Exam Const: COMMON NORMALS: no acute distress, patient oriented x3 and healthy appearing HENMT: COMMON NORMALS: normocephalic and atraumatic HEAD & SCALP: normocephalic and atraumatic Eye: COMMON NORMALS: Equal, round and reactive pupils present and EOMs intact bilaterally PUPIL: Yes Equal, round and reactive pupils present Neck/C-Spine: COMMON NORMALS: full ROM and supple Chest: COMMONS NORMALS: normal inspection of the chest and normal palpation of entire chest wall Resp: COMMON NORMALS: normal respiratory effort, No retractions, No use of accessory muscles and clear to auscultation bilaterally AUSCULTATION: clear to auscultation bilaterally Cardio: COMMON NORMALS: regular rate, regular rhythm and No murmurs present (Cardio) RATE: regular rate RHYTHM: regular rhythm GI: COMMON NORMALS: Normal to inspection, nondistended, normoactive bowel sounds present, Soft to palpation, non-tender and no masses PALPATION: Yes Soft to palpation Extremity: COMMON NORMALS: normal to inspection and full ROM Neuro: COMMON NORMALS: patient oriented x3, moves all extremities and no focal motor deficits Psych: COMMON NORMALS: mental status grossly normal, Normal thought process present and cooperative THOUGHT PROCESS: Normal thought process present Skin: COMMON NORMALS: no rashes or lesions noted and no wounds GENERAL SKIN EXAM: no rashes or lesions noted Course Vital Signs: Vital signs: Vital Signs Temperature 97.5 F L 10/22/21 04:40 Pulse Rate 45 L 10/22/21 06:15 Respiratory Rate 18 10/22/21 06:15 Blood Pressure 134/77 10/22/21 06:15 Pulse Oximetry 97 10/22/21 06:15 MDM - Abdominal Pain Medical Decision Making Patient is in the ER this morning when begin his shift. Dr. Hogan had discharged the patient they asked the nurse for nausea and pain medications. Added promethazine and hydrocodone to the discharge list encourage low-fat diet. Patient presents with right upper quadrant abdominal pain ultrasound here shows no acute findings blood work is normal as well. We will get her follow-up with surgery she is to return if worsening she understands agrees to plan. Lab Data : 10/22/21 04:39 10/22/21 04:39 Labs/Radiology: Laboratory Results WBC 8.2 10^3/uL (4.0-10.0) 10/22/21 04:39 RBC 4.53 10^6/uL (4.1-5.3) 10/22/21 04:39 Hgb 12.2 g/dL (11.5-15.3) 10/22/21 04:39 Hct 37.1 % (37.0-47.0) 10/22/21 04:39 MCV 81.9 fl (81-99) 10/22/21 04:39 MCH 26.9 pg (28.0-34.0) L 10/22/21 04:39 MCHC 32.9 g/dL (30.0-36.0) 10/22/21 04:39 RDW 16.2 % (12.1-15.1) H 10/22/21 04:39 Plt Count 192 10^3/cmm (130-400) 10/22/21 04:39 MPV 10.2 fL (7.4-10.4) 10/22/21 04:39 Neut % (Auto) 61.4 % 10/22/21 04:39 Lymph % (Auto) 30.4 % 10/22/21 04:39 [place] % (Auto) 6.4 % 10/22/21 04:39 Eos % (Auto) 1.0 % 10/22/21 04:39 Baso % (Auto) 0.6 % 10/22/21 04:39 Neut # (Auto) 5.05 10^3/uL (1.8-7.7) 10/22/21 04:39 Lymph # (Auto) 2.5 10^3/uL (0.8-4.8) 10/22/21 04:39 [place] # (Auto) 0.5 10^3/uL (0.2-0.9) 10/22/21 04:39 Eos # (Auto) 0.1 10^3/uL (0.0-0.8) 10/22/21 04:39 Baso # (Auto) 0.1 10^3/uL (0.0-0.1) 10/22/21 04:39 Nucleated RBC % (auto) 0 % 10/22/21 04:39 Nucleated RBCs # 0.0 /100WBC 10/22/21 04:39 Sodium 138 mmol/L (136-145) 10/22/21 04:39 Potassium 4.0 mmol/L (3.5-5.1) 10/22/21 04:39 Chloride 101 mmol/L (98-107) 10/22/21 04:39 Carbon Dioxide 27 mmol/L (22-29) 10/22/21 04:39 Anion Gap 14.0 (5-19) 10/22/21 04:39 BUN 20 mg/dL (6-20) 10/22/21 04:39 Creatinine 0.9 mg/dL (0.5-0.9) 10/22/21 04:39 GFR Calculation 64.1 mL/min (90-130) L 10/22/21 04:39 Glucose 111 mg/dL (65-115) 10/22/21 04:39 Calculated Osmolality 289 mOsm/kg (285-295) 10/22/21 04:39 Calcium 9.1 mg/dL (8.5-10.5) 10/22/21 04:39 Total Bilirubin 0.3 mg/dL (0.15-1.2) 10/22/21 04:39 AST 21 U/L (0-32) 10/22/21 04:39 ALT 16 U/L (0-33) 10/22/21 04:39 Alkaline Phosphatase 59 IU/L (35-105) 10/22/21 04:39 Total Protein 7.0 g/dL (6.6-8.7) 10/22/21 04:39 Albumin 4.2 g/dL (3.5-5.2) 10/22/21 04:39 Globulin 2.8 g/dL (1.3-4.6) 10/22/21 04:39 Lipase 51 U/L (13-60) 10/22/21 04:39 Discharge Plan Discharge Patient Disposition: Home Clinical Impression: Abdominal pain Qualifiers: Abdominal location: right upper quadrant Qualified Code(s): R10.11 - Right upper quadrant pain Condition: Stable Prescriptions: New hydrocodone-acetaminophen 5-325 mg tablet 1 tab PO Q6H PRN (Reason: pain) Qty: 10 0RF promethazine 25 mg tablet 25 mg PO Q6H PRN (Reason: nausea and vomiting) Qty: 20 0RF Discontinued acetaminophen-codeine 300-30 mg tablet 1 tab PO Q4H PRN (Reason: Pain) 0RF No Action oxybutynin chloride 15 mg tablet extended release 24hr 15 mg PO DAILY 0RF epinephrine 0.3 mg/0.3 mL auto-injector 0.3 mg IM Q4H PRN (Reason: Allergic Reaction) 0RF M- Plus 27 mg iron- 1 mg tablet 1 tab PO DAILY 0RF cetirizine [All Day Allergy (cetirizine)] 10 mg tablet 10 mg PO DAILY 0RF albuterol sulfate 90 mcg/actuation HFA aerosol inhaler 2 puff inhalation Q6H PRN (Reason: allergies) 0RF ondansetron 4 mg tablet,disintegrating 4 mg PO Q4H PRN (Reason: overreactive bladder) 0RF fluticasone propionate [Allergy Relief (fluticasone)] 50 mcg/actuation spray,suspension 2 spray intranasal DAILY PRN (Reason: allergies) 0RF Rx Instructions: administer into each nostril pantoprazole 40 mg tablet,delayed release (DR/EC) 40 mg PO BID Qty: 60 3RF Discharge Orders: Discharge ED (Routine); Ordered 10/22/21 Ordered By: Berenice Hogan Referrals: Watson Manzano DO [Physician] - 1-3 days Milligan,TERRA Ruiz [Primary Care Provider] - Discharge Diet: Advance as tolerated Discharge Activity: Resume usual activity Patient Instructions: Abdominal Pain (ED) Coding Level of Care Code ED Phlebotomy Services Technician for Chg Fwd Exam Comprehensive Documented by User: Chad Harrison DO 10/22/21 06:09 HPI - Abdominal Pain General: Chief Complaint: Abdominal Pain Stated Complaint: ABD PAIN Time Seen by Provider: 10/22/21 04:34 PFSH ED PFSH: Medical History Hypercholesteremia Menometrorrhagia No pertinent past medical history Surgical History History of bilateral tubal ligation at age 23 Family History Mother Cancer Colon Clotting disorder Family/Other Diabetes Paternal aunts and uncles Brother Hypertension Denies family history of CAD (coronary artery disease) Hyperlipidemia Chronic kidney disease (CKD) Bleeding disorder Stroke Social History Smoking and tobacco status: never smoked Course Vital Signs: Vital signs: Vital Signs Temperature 97.5 F L 10/22/21 04:40 Pulse Rate 45 L 10/22/21 06:15 Respiratory Rate 18 10/22/21 06:15 Blood Pressure 134/77 10/22/21 06:15 Pulse Oximetry 97 10/22/21 06:15 MDM - Abdominal Pain Medical Decision Making Patient is in the ER this morning when begin his shift. Dr. Hogan had discharged the patient they asked the nurse for nausea and pain medications. Added promethazine and hydrocodone to the discharge list encourage low-fat diet. Medical Records I reviewed the patient's medical records. Lab Data I reviewed the patient's lab results. : 10/22/21 04:39 10/22/21 04:39 Labs/Radiology: Laboratory Results WBC 8.2 10^3/uL (4.0-10.0) 10/22/21 04:39 RBC 4.53 10^6/uL (4.1-5.3) 10/22/21 04:39 Hgb 12.2 g/dL (11.5-15.3) 10/22/21 04:39 Hct 37.1 % (37.0-47.0) 10/22/21 04:39 MCV 81.9 fl (81-99) 10/22/21 04:39 MCH 26.9 pg (28.0-34.0) L 10/22/21 04:39 MCHC 32.9 g/dL (30.0-36.0) 10/22/21 04:39 RDW 16.2 % (12.1-15.1) H 10/22/21 04:39 Plt Count 192 10^3/cmm (130-400) 10/22/21 04:39 MPV 10.2 fL (7.4-10.4) 10/22/21 04:39 Neut % (Auto) 61.4 % 10/22/21 04:39 Lymph % (Auto) 30.4 % 10/22/21 04:39 [place] % (Auto) 6.4 % 10/22/21 04:39 Eos % (Auto) 1.0 % 10/22/21 04:39 Baso % (Auto) 0.6 % 10/22/21 04:39 Neut # (Auto) 5.05 10^3/uL (1.8-7.7) 10/22/21 04:39 Lymph # (Auto) 2.5 10^3/uL (0.8-4.8) 10/22/21 04:39 [place] # (Auto) 0.5 10^3/uL (0.2-0.9) 10/22/21 04:39 Eos # (Auto) 0.1 10^3/uL (0.0-0.8) 10/22/21 04:39 Baso # (Auto) 0.1 10^3/uL (0.0-0.1) 10/22/21 04:39 Nucleated RBC % (auto) 0 % 10/22/21 04:39 Nucleated RBCs # 0.0 /100WBC 10/22/21 04:39 Sodium 138 mmol/L (136-145) 10/22/21 04:39 Potassium 4.0 mmol/L (3.5-5.1) 10/22/21 04:39 Chloride 101 mmol/L (98-107) 10/22/21 04:39 Carbon Dioxide 27 mmol/L (22-29) 10/22/21 04:39 Anion Gap 14.0 (5-19) 10/22/21 04:39 BUN 20 mg/dL (6-20) 10/22/21 04:39 Creatinine 0.9 mg/dL (0.5-0.9) 10/22/21 04:39 GFR Calculation 64.1 mL/min (90-130) L 10/22/21 04:39 Glucose 111 mg/dL (65-115) 10/22/21 04:39 Calculated Osmolality 289 mOsm/kg (285-295) 10/22/21 04:39 Calcium 9.1 mg/dL (8.5-10.5) 10/22/21 04:39 Total Bilirubin 0.3 mg/dL (0.15-1.2) 10/22/21 04:39 AST 21 U/L (0-32) 10/22/21 04:39 ALT 16 U/L (0-33) 10/22/21 04:39 Alkaline Phosphatase 59 IU/L (35-105) 10/22/21 04:39 Total Protein 7.0 g/dL (6.6-8.7) 10/22/21 04:39 Albumin 4.2 g/dL (3.5-5.2) 10/22/21 04:39 Globulin 2.8 g/dL (1.3-4.6) 10/22/21 04:39 Lipase 51 U/L (13-60) 10/22/21 04:39 Discharge Plan Discharge Patient Disposition: Home Clinical Impression: Abdominal pain Qualifiers: Abdominal location: right upper quadrant Qualified Code(s): R10.11 - Right upper quadrant pain Condition: Stable Prescriptions: New hydrocodone-acetaminophen 5-325 mg tablet 1 tab PO Q6H PRN (Reason: pain) Qty: 10 0RF promethazine 25 mg tablet 25 mg PO Q6H PRN (Reason: nausea and vomiting) Qty: 20 0RF Discontinued acetaminophen-codeine 300-30 mg tablet 1 tab PO Q4H PRN (Reason: Pain) 0RF No Action oxybutynin chloride 15 mg tablet extended release 24hr 15 mg PO DAILY 0RF epinephrine 0.3 mg/0.3 mL auto-injector 0.3 mg IM Q4H PRN (Reason: Allergic Reaction) 0RF M- Plus 27 mg iron- 1 mg tablet 1 tab PO DAILY 0RF cetirizine [All Day Allergy (cetirizine)] 10 mg tablet 10 mg PO DAILY 0RF albuterol sulfate 90 mcg/actuation HFA aerosol inhaler 2 puff inhalation Q6H PRN (Reason: allergies) 0RF ondansetron 4 mg tablet,disintegrating 4 mg PO Q4H PRN (Reason: overreactive bladder) 0RF fluticasone propionate [Allergy Relief (fluticasone)] 50 mcg/actuation spray,suspension 2 spray intranasal DAILY PRN (Reason: allergies) 0RF Rx Instructions: administer into each nostril pantoprazole 40 mg tablet,delayed release (DR/EC) 40 mg PO BID Qty: 60 3RF Discharge Orders: Discharge ED (Routine); Ordered 10/22/21 Ordered By: Berenice Hogan Referrals: Watson Manzano DO [Physician] - 1-3 days Milligan,TERRA Ruiz [Primary Care Provider] - Discharge Diet: Advance as tolerated Discharge Activity: Resume usual activity Patient Instructions: Abdominal Pain (ED) Coding Level of Care Code ED Phlebotomy Services Technician for Chg Fwd Exam Comprehensive
[2021-10-22 04:40] VITALS: BP 125/57; PULSE 55; RESP 18; TEMP 36.4; O2SAT 96; BMI 29.2
[2021-10-22] MEDS: sodium chloride 0.9% 1,000 ML 999 ML IV (04:42)
[2021-10-22 04:43] LABS: Basophils # 0.1 10^3/uL (0.0-0.1); Basophils % 0.6 %; Eosinophils # 0.1 10^3/uL (0.0-0.8); Hematocrit 37.1 % (37.0-47.0); Hemoglobin 12.2 g/dL (11.5-15.3); Lymphocytes # 2.5 10^3/uL (0.8-4.8); Lymphocytes % 30.4 %; Mean Corpuscular HGB Conc 32.9 g/dL (30.0-36.0); Mean Corpuscular Hemoglobin 26.9 pg (28.0-34.0); Mean Corpuscular Volume 81.9 fl (81-99); Mean Platelet Volume 10.2 fL (7.4-10.4); Monocytes # 0.5 10^3/uL (0.2-0.9); Monocytes % 6.4 %; Neutrophils # 5.05 10^3/uL (1.8-7.7); Neutrophils % 61.4 %; Nucleated Red Blood Cells % 0 %; Platelet Count 192 10^3/cmm (130-400); Red Blood Count 4.53 10^6/uL (4.1-5.3); Red Cell Distribution Width 16.2 % (12.1-15.1); White Blood Count 8.2 10^3/uL (4.0-10.0)
[2021-10-22 04:53] VITALS: PULSE 49; RESP 18; O2SAT 96
[2021-10-22 05:08] LABS: Alanine Aminotransferase 16 U/L (0-33); Albumin Level 4.2 g/dL (3.5-5.2); Alkaline Phosphatase 59 IU/L (35-105); Aspartate Amino Transferase 21 U/L (0-32); Blood Urea Nitrogen 20 mg/dL (6-20); Calcium 9.1 mg/dL (8.5-10.5); Carbon Dioxide 27 mmol/L (22-29); Chloride 101 mmol/L (98-107); Globulin 2.8 g/dL (1.3-4.6); Glomerular Filtration Rate 64.1 mL/min (90-130); Glucose 111 mg/dL (65-115); Lipase 51 U/L (13-60); Osmolality Calculated 289 mOsm/kg (285-295); Sodium 138 mmol/L (136-145); Total Bilirubin 0.3 mg/dL (0.15-1.2)
[2021-10-22 05:17] VITALS: BP 121/72; PULSE 52; RESP 18; O2SAT 97
[2021-10-22 06:15] VITALS: BP 134/77; PULSE 45; RESP 18; O2SAT 97
--- NOTE | 2021-10-27 12:01 | DCPLANNER ---
Addendum entered by Kirsten Grimm 11/17/21 11:12: privacy compliance manager was sent the following message about follow up: patient is seeing her PCP Wednesday morning and she will call us on Wednesday to set something up afterwards Original Note: privacy compliance manager had message to schedule a follow up appointment for patient with general surgery. privacy compliance manager sent patients information to the front office staff at general surgery. Patients information will be printed and reviewed. Clinic will call patient with appointment information.
== END 2021-10-22 06:16 | disposition home or self-care (01) ==
PROVIDERS: Emergency Medicine; Emergency Provider Family Medicine; PCP Nurse Practitioner Family
DX: R10.11 Right upper quadrant pain (principal)
CPT/HCPCS: 76705; 80053; 83690; 85025; 96360; 99283; J7030

== ENCOUNTER 2022-02-17 10:15 | Outpatient (CLI) | payer BC, SELFPAY ==
--- NOTE | 2022-02-17 10:47 | MM_ITS ---
WS: [id number] BILATERAL SCREENING DIGITAL TOMOSYNTHESIS MAMMOGRAM WITH CAD HISTORY: SCREENING COMPARISON: 04/12/2020 and 02/03/2019 Bilateral CC and MLO views with tomosynthesis and synthetic mammography submitted. Computer aided det ection analyzed. Breast composition: There are scattered areas of fibroglandular density. No suspicious masses, microc alcifications or architectural distortion. Long-term stability asymmetry in the lateral RIGHT breast. MM/[place] [id number] IMPRESSION: BI-RADS: 2-Benign FOLLOW UP: 1 Year Follow-up
== END 2022-02-17 10:16 | disposition home or self-care (01) ==
LOC: RAD 10:16
PROVIDERS: PCP Nurse Practitioner Family; Visit Provider Nurse Practitioner Family
DX: Z12.31 Encounter for screening mammogram for malignant neoplasm of breast (principal)
CPT/HCPCS: 77063; 77067

== ENCOUNTER 2022-08-03 09:40 | Outpatient (CLI) | payer BC, SELFPAY ==
--- NOTE | 2022-08-03 09:54 | XR_ITS ---
WS: [id number] EXAMINATION: XR chest 2V* [id number] REASON FOR EXAM: DYSPNEA COMPARISON: 10/29/2020 ORDER DATE: 08/03/2022 9:57 AM TOTAL EXAM DLP: All [facility] scans at [facility] use at least one of these dose optimization techniques: automated e xposure control; mA and/or kV adjustment per patient size (includes targeted exams where dose is matc hed to clinical indication); or iterative reconstruction. TECHNIQUE: Imaging protocol: XR of the chest. Views: 2 views. FINDINGS: Lungs: Unremarkable. No consolidation. Pleural spaces: Unremarkable. No pleural effusion. No pneumothorax. Heart/Mediastinum: Unremarkable. No cardiomegaly. Bones/joints: Unremarkable. There is a moderate-sized hiatal hernia which appears larger than on the previous study by at least 5 0%. XR/XR chest 2V* [id number] IMPRESSION: No acute changes. More prominent hiatal hernia than previous
== END 2022-08-03 09:41 | disposition home or self-care (01) ==
LOC: RAD 09:44
PROVIDERS: PCP Nurse Practitioner Family; Visit Provider Nurse Practitioner Family
DX: R06.00 Dyspnea, unspecified (principal); K44.9 Diaphragmatic hernia without obstruction or gangrene
CPT/HCPCS: 71046

== ENCOUNTER 2023-02-26 12:38 | Outpatient (CLI) | payer BC, SELFPAY ==
--- NOTE | 2023-02-26 13:03 | MM_ITS ---
WS: [id number] BILATERAL 3D TOMOSYNTHESIS DIGITAL SCREENING MAMMOGRAPHY WITH CAD CLINICAL INFORMATION: SCREENING HISTORY: Screening mammogram. No current complaints. COMPARISON: 2021 TECHNIQUE: Bilateral CC and MLO views. FINDINGS: Scattered fibroglandular densities bilaterally. No suspicious focal mass, asymmetry, calcifications, or architectural distortion. No evidence of malignancy. Incidental punctate calcifications. IMPRESSION: MM/[place] [id number] BI-RADS: 2-Benign FOLLOW UP: 1 Year Follow-up Recommend return to annual screening mammography.
== END 2023-02-26 12:39 | disposition home or self-care (01) ==
LOC: RAD 12:38
PROVIDERS: PCP Nurse Practitioner Family; Visit Provider Nurse Practitioner Family
DX: Z12.31 Encounter for screening mammogram for malignant neoplasm of breast (principal)
CPT/HCPCS: 77063; 77067

== ENCOUNTER 2024-04-06 13:20 | Outpatient (CLI) | payer BC, SELFPAY ==
--- NOTE | 2024-04-06 13:20 | MM_ITS ---
WS: [id number] BILATERAL SCREENING DIGITAL TOMOSYNTHESIS MAMMOGRAM WITH CAD HISTORY: SCREENING COMPARISON: 02/26/2023, 02/17/2022 Bilateral CC and MLO views with tomosynthesis and synthetic mammography submitted. Computer aided det ection analyzed. Breast composition: There are scattered areas of fibroglandular density. No suspicious masses, microc alcifications or architectural distortion. Benign calcifications in each breast. Asymmetry upper oute r quadrant RIGHT breast is stable over multiple prior exams. MM/MM scr BI tomosynthesis [id number] IMPRESSION: BI-RADS: 2 - Benign. FOLLOW UP: 1 Year Follow-up
== END 2024-04-06 13:21 | disposition home or self-care (01) ==
LOC: MOBLMAM 13:24
PROVIDERS: PCP Nurse Practitioner Family; Visit Provider Nurse Practitioner Family
DX: Z12.31 Encounter for screening mammogram for malignant neoplasm of breast (principal); R92.323 Mammographic fibroglandular density, bilateral breasts; R92.1 Mammographic calcification found on diagnostic imaging of breast; N64.89 Other specified disorders of breast
CPT/HCPCS: 77063; 77067

== ENCOUNTER 2024-08-02 08:56 | Emergency (ER) | payer BC, SELFPAY ==
[2024-08-02] VITALS (22 sets, daily range): BP systolic 85–106; BP diastolic 46–63; PULSE 51–87; RESP 10–30; TEMP 36.6; O2SAT 90–98; BMI 29.2
--- NOTE | 2024-08-02 09:31 | W.ED.ABDPA2 ---
HPI - Abdominal Pain General: Chief Complaint: Abdominal Pain Stated Complaint: ABD PAIN Time Seen by Provider: 08/02/24 08:56 History of Present Illness: 62-year-old female presents emergency room complaining of hematochezia. Ongoing issue she has had several years of intermittent hematochezia. She has previously had a colonoscopy, this was reported to her as normal. Localize most of her pain to the left lower quadrant. She usually just with singular episodes of blood red blood per stool this time she has had a couple of days worth and has more left lower quadrant discomfort. Associated Symptoms: Reports hematochezia, nausea and vomiting; Denies chills, dysuria and fever(s) Related Data Home Medications ?Medication ?Instructions ?Recorded ?Confirmed mirabegron 25 mg tablet,extended 25 mg PO DAILY 08/02/24 08/02/24 release 24 hr olmesartan 5 mg tablet 5 mg PO DAILY 08/02/24 08/02/24 oxybutynin chloride 15 mg 15 mg PO DAILY 08/02/24 08/02/24 tablet,extended release 24 hr pantoprazole 40 mg tablet,delayed 40 mg PO DAILY 08/02/24 08/02/24 release sulfamethoxazole 800 1 tab PO BID 08/02/24 08/02/24 mg-trimethoprim 160 mg tablet vonoprazan 20 mg tablet (Voquezna) 20 mg PO DAILY 08/02/24 08/02/24 Previous Rx's ?Medication ?Instructions ?Recorded ciprofloxacin HCl 500 mg tablet 500 mg PO BID #14 tabs 08/02/24 (Cipro) hydrocodone 5 mg-acetaminophen 325 1 tab PO Q6H PRN pain #10 tabs 08/02/24 mg tablet metronidazole 500 mg tablet 500 mg PO BID 7 days #14 tabs 08/02/24 promethazine 25 mg tablet 25 mg PO Q6H PRN nausea and 08/02/24 vomiting #20 tabs Allergies Allergy/AdvReac Type Severity Reaction Status Date / Time propofol Allergy Severe ADR-Nausea Verified 10/30/21 14:25 azithromycin Allergy Unknown Verified 10/30/21 14:25 naproxen Allergy Unknown Verified 10/30/21 14:25 Review of Systems Const: Denies: fever(s) or chills Card: Denies: chest pain Resp: Denies: dyspnea GI: Reports: abdominal pain, nausea, vomiting and hematochezia : Denies: dysuria, urinary frequency or urinary urgency Musc: Denies: neck pain or back pain Skin/Breast: Denies: rash PFSH ED PFSH: Medical History No pertinent past medical history Hypercholesteremia Menometrorrhagia Surgical History History of bilateral tubal ligation at age 23 Family History Mother Cancer Colon Clotting disorder Family/Other Diabetes Paternal aunts and uncles Brother Hypertension Denies family history of CAD (coronary artery disease) Hyperlipidemia Chronic kidney disease (CKD) Bleeding disorder Stroke Social History Smoking and tobacco/nicotine status: never used tobacco/nicotine Physical Exam Const: GENERAL APPEARANCE: cooperative ORIENTATION/CONSCIOUSNESS: Yes awake, Yes oriented to person, Yes oriented to place and Yes oriented to time HENMT: COMMON NORMALS: normocephalic, atraumatic and hearing grossly normal bilaterally HEAD & SCALP: normocephalic and atraumatic Resp: COMMON NORMALS: normal respiratory effort, No retractions, No use of accessory muscles and clear to auscultation bilaterally AUSCULTATION: clear to auscultation bilaterally Cardio: COMMON NORMALS: regular rate, regular rhythm and No murmurs present (Cardio) RATE: regular rate RHYTHM: regular rhythm GI: COMMON NORMALS: No hepatosplenomegaly present AUSCULTATION: Yes normoactive bowel sounds PALPATION: Yes Tenderness to palpation present (GI) Details: LLQ, No Guarding due to palpation present (GI) and Yes No hepatosplenomegaly present Extremity: COMMON NORMALS: normal to inspection, capillary refill normal, no clubbing, cyanosis or edema, no calf tenderness and no pedal edema Neuro: SENSORIUM/ORIENTATION: Yes oriented to person, Yes oriented to place and Yes oriented to time Skin: COMMON NORMALS: no rashes or lesions noted GENERAL SKIN EXAM: no rashes or lesions noted Course Vital Signs: Vital signs: Vital Signs Temperature 97.8 F 08/02/24 08:57 Pulse Rate 87 08/02/24 12:16 Respiratory Rate 13 08/02/24 11:05 Blood Pressure 101/59 08/02/24 12:16 Pulse Oximetry 98 08/02/24 12:16 Oxygen Delivery Me thod Room Air 08/02/24 09:18 MDM - Abdominal Pain Medical Decision Making CT shows colitis which I believe is likely the cause of the rectal bleeding that she has been having she does have some external hemorrhoids but they are not actively bleeding on exam. Will discharge patient home started on Cipro and Flagyl. She did not have any further active bleeding while in the emergency room. Is important for her to have follow-up with occult surgery for colonoscopy at some point. Referral made through case management. Return if has further bleeding. Medical Records I reviewed the patient's medical records. Lab Data I reviewed the patient's lab results. 08/02/24 09:16 08/02/24 09:16 Labs/Radiology: Radiology Impressions Abdomen/Pelvis CT 08/02/24 09:33 IMPRESSION: 1. Diffuse wall thickening with enhancement involving the LEFT colon at the splenic flexure extending into the descending colon compatible with infectious or inflammatory colitis. 2. Fatty liver with hepatomegaly. 3. Prior cholecystectomy. 4. Large esophageal hiatal hernia Laboratory Results WBC 10.81 10^3/uL (3.29-11.43) 08/02/24 09:16 RBC 4.25 10^6/uL (3.85-5.65) 08/02/24 09:16 Hgb 13.70 g/dL (11.27-16.99) 08/02/24 09:16 Hct 41.0 % (36-47) 08/02/24 09:16 MCV 96.5 fl (85-98) 08/02/24 09:16 MCH 32.2 pg (27-33) 08/02/24 09:16 MCHC 33.4 g/dL (30-55) 08/02/24 09:16 RDW 12.1 % (12.1-15.1) 08/02/24 09:16 Plt Count 194 10^3/cmm (157-399) 08/02/24 09:16 MPV 9.9 fL (7.4-10.4) 08/02/24 09:16 Neut % (Auto) 69.7 % 08/02/24 09:16 Lymph % (Auto) 22.4 % 08/02/24 09:16 [place] % (Auto) 6.5 % 08/02/24 09:16 Eos % (Auto) 0.5 % 08/02/24 09:16 Baso % (Auto) 0.5 % 08/02/24 09:16 Neut # (Auto) 7.55 10^3/uL (1.8-7.7) 08/02/24 09:16 Lymph # (Auto) 2.4 10^3/uL (0.8-4.8) 08/02/24 09:16 [place] # (Auto) 0.7 10^3/uL (0.2-0.9) 08/02/24 09:16 Eos # (Auto) 0.1 10^3/uL (0.0-0.8) 08/02/24 09:16 Baso # (Auto) 0.1 10^3/uL (0.0-0.1) 08/02/24 09:16 Nucleated RBC % (auto) 0 % 08/02/24 09:16 Nucleated RBCs # 0.0 /100WBC 08/02/24 09:16 Sodium 138 mmol/L (136-145) 08/02/24 09:16 Potassium 3.6 mmol/L (3.5-5.1) 08/02/24 09:16 Chloride 103 mmol/L (98-107) 08/02/24 09:16 Carbon Dioxide 24 mmol/L (22-29) 08/02/24 09:16 Anion Gap 14.6 (5-19) 08/02/24 09:16 BUN 24 mg/dL (8-23) H 08/02/24 09:16 Creatinine 1.2 mg/dL (0.5-0.9) H 08/02/24 09:16 GFR Calculation 45.5 mL/min (90-130) L 08/02/24 09:16 Glucose 88 mg/dL (65-115) 08/02/24 09:16 Calculated Osmolality 289 mOsm/kg (285-295) 08/02/24 09:16 Calcium 8.9 mg/dL (8.5-10.5) 08/02/24 09:16 Total Bilirubin 0.5 mg/dL (0.15-1.2) 08/02/24 09:16 AST 21 U/L (0-32) 08/02/24 09:16 ALT 32 U/L (0-33) 08/02/24 09:16 Alkaline Phosphatase 81 U/L (35-105) 08/02/24 09:16 Total Protein 6.4 g/dL (6.6-8.7) L 08/02/24 09:16 Albumin 3.7 g/dL (3.5-5.2) 08/02/24 09:16 Globulin 2.7 g/dL (1.3-4.6) 08/02/24 09:16 Lipase 39 U/L (13-60) 08/02/24 09:16 Urine Color Yellow (Yellow) 08/02/24 10:50 Urine Appearance Clear (CLEAR) 08/02/24 10:50 Urine pH 6 (5-7) 08/02/24 10:50 Ur Specific [place] 1.000 (1.005-1.030) L 08/02/24 10:50 Urine Protein Neg (Negative) 08/02/24 10:50 Urine Glucose (UA) Norm (Normal) 08/02/24 10:50 Urine Ketones Negative (Negative) 08/02/24 10:50 Urine Blood Neg (Negative) 08/02/24 10:50 Urine Nitrate Negative (Negative) 08/02/24 10:50 Urine Bilirubin Neg (Negative) 08/02/24 10:50 Urine Urobilinogen Norm mg/dL (Negative) 08/02/24 10:50 Ur Leukocyte Esterase Negative (Negative) 08/02/24 10:50 Amorphous Sediment Not Reportable 08/02/24 10:50 All radiology interpretation(s) finalized by discharge Discharge Plan Discharge Patient Disposition: Home Clinical Impression: Colitis Condition: Stable Prescriptions: New hydrocodone-acetaminophen 5-325 mg tablet 1 tab PO Q6H PRN (Reason: pain) Qty: 10 0RF promethazine 25 mg tablet 25 mg PO Q6H PRN (Reason: nausea and vomiting) Qty: 20 0RF ciprofloxacin HCl [Cipro] 500 mg tablet 500 mg PO BID Qty: 14 0RF metronidazole 500 mg tablet 500 mg PO BID 7 Days Qty: 14 0RF No Action oxybutynin chloride 15 mg tablet extended release 24hr 15 mg PO DAILY sulfamethoxazole-trimethoprim 800-160 mg tablet 1 tab PO BID pantoprazole 40 mg tablet,delayed release (DR/EC) 40 mg PO DAILY olmesartan 5 mg tablet 5 mg PO DAILY mirabegron 25 mg tablet extended release 24 hr 25 mg PO DAILY Voquezna 20 mg tablet 20 mg PO DAILY Discharge Orders: Discharge ED (Routine); Ordered 08/02/24 Ordered By: Chad Harrison Referrals: Milligan,Sara, [employer] [Primary Care Provider] - Discharge Diet: Usual diet Discharge Activity: Resume usual activity Patient Instructions: Opioid Safety, Pain Management Activity Restrictions/Additional Instructions: [facility] It is very important that you follow up as instructed or that you return to the Emergency Department should you have concerns or if your condition changes or worsens in any way. You are seen emergency room with complaints of rectal bleeding and abdominal cramping. CT shows a section of colitis. Your hemoglobin is stable. Recommend that you start on oral antibiotics ciprofloxacin and metronidazole. You should take those for 1 week. You are also given pain and nausea medicines to use as needed. Clear liquid diet for the next 2 to 3 days and advance as tolerated. Follow-up with your primary care physician you will likely need further evaluation including possible colonoscopy. Print Language: Ecuadorean Coding Level of Care Code ED Grab Operator for Ondina Encarnacion
--- NOTE | 2024-08-02 09:33 | CT_ITS ---
WS: [id number] CT ABDOMEN PELVIS TECHNIQUE: Contrast-enhanced CT of the abdomen and pelvis with coronal and sagittal reformatted images. CLINICAL INFORMATION: abd pain COMPARISON: None. DLP: 519.[address] scans at [facility] use at least one of these dose optimization techniques: automated exposure control; mA and/or kV adjustment per patient size (includes targeted exams where dose is matched to clinical indication); or iterative reconstruction. FINDINGS: Diffuse wall thickening with enhancement and induration about the LEFT colon compatible with acute colitis. This extends to the splenic flexure. Sigmoid colon has a more normal appearance. Urine distended bladder. Fatty liver. Cholecystectomy. Bibasilar atelectasis. Large esophageal hiatal hernia. Normal pancreatic parenchymal enhancement. Celiac and SMA are patent. Normal caliber abdominal aorta. Artery calcification. Tiny fat-containing umbilical hernia. No hydronephrosis in either kidney. Small RIGHT renal cyst. Adrenal glands are normal. CT/CT abdomen pelvis w con* [id number] IMPRESSION: 1. Diffuse wall thickening with enhancement involving the LEFT colon at the sp lenic flexure extending into the descending colon compatible with infectious or inflammatory colitis. 2. Fatty liver with hepatomegaly. 3. Prior cholecystectomy. 4. Large esophageal hiatal hernia
[2024-08-02 09:35] LABS: Basophils # 0.1 10^3/uL (0.0-0.1); Basophils % 0.5 %; Eosinophils # 0.1 10^3/uL (0.0-0.8); Eosinophils % 0.5 %; Lymphocytes # 2.4 10^3/uL (0.8-4.8); Lymphocytes % 22.4 %; Mean Corpuscular HGB Conc 33.4 g/dL (30-55); Mean Corpuscular Hemoglobin 32.2 pg (27-33); Mean Corpuscular Volume 96.5 fl (85-98); Mean Platelet Volume 9.9 fL (7.4-10.4); Monocytes # 0.7 10^3/uL (0.2-0.9); Monocytes % 6.5 %; Neutrophils # 7.55 10^3/uL (1.8-7.7); Neutrophils % 69.7 %; Nucleated Red Blood Cells % 0 %; Platelet Count 194 10^3/cmm (157-399); Red Blood Count 4.25 10^6/uL (3.85-5.65); Red Cell Distribution Width 12.1 % (12.1-15.1); White Blood Count 10.81 10^3/uL (3.29-11.43)
[2024-08-02 09:55] LABS: Alanine Aminotransferase 32 U/L (0-33); Albumin Level 3.7 g/dL (3.5-5.2); Alkaline Phosphatase 81 U/L (35-105); Anion Gap 14.6 (5-19); Aspartate Amino Transferase 21 U/L (0-32); Blood Urea Nitrogen 24 mg/dL (8-23); Calcium 8.9 mg/dL (8.5-10.5); Carbon Dioxide 24 mmol/L (22-29); Chloride 103 mmol/L (98-107); Creatinine Clr Calc Pharmacy 47.0985; Globulin 2.7 g/dL (1.3-4.6); Glomerular Filtration Rate 45.5 mL/min (90-130); Glucose 88 mg/dL (65-115); Lipase 39 U/L (13-60); Osmolality Calculated 289 mOsm/kg (285-295); Potassium 3.6 mmol/L (3.5-5.1); Sodium 138 mmol/L (136-145); Total Bilirubin 0.5 mg/dL (0.15-1.2); Total Protein 6.4 g/dL (6.6-8.7)
[2024-08-02] MEDS: iohexol 350 mg/mL 500 mL Btl (per mL) IV (10:20)
[2024-08-02 11:02] LABS: Add Urine Microscopic? NO
[2024-08-02 11:04] LABS: Bilirubin Urine Neg (Negative); Blood Urine Neg (Negative); Glucose Urine UA Norm (Normal); Ketones Urine Negative (Negative); Leukocyte Esterase Urine Negative (Negative); Nitrate Urine Negative (Negative); Protein Urine Neg (Negative); Urine Appearance Clear (CLEAR); Urine Color Yellow (Yellow); Urobilinogen Urine Norm (Negative); pH Urine 6 (5-7)
[2024-08-02 11:05] LABS: Charge for UA Resulting for Rev
--- NOTE | 2024-08-03 10:20 | DCPLANNER ---
messaged gen surg for er f/u
== END 2024-08-02 12:17 | disposition home or self-care (01) ==
PROVIDERS: Emergency Provider Family Medicine; PCP Nurse Practitioner Family
DX: K52.9 Noninfective gastroenteritis and colitis, unspecified (principal)
CPT/HCPCS: 36415; 74177; 80053; 81003; 83690; 85025; 99285

== ENCOUNTER 2025-02-07 15:08 | Outpatient (CLI) | payer BC, SELFPAY ==
--- NOTE | 2025-02-07 15:13 | XR_ITS ---
WS: [id number] XR thoracolumbar junct [id number] REASON FOR EXAM: BACK PAIN FINDINGS: Mild rotatory levoscoliosis of the lumbar spine. Mildly exaggerated lumbar lordosis. There is a mild focal gibbus deformity of the thoracolumbar junction at T11-T12. There is a mild concave compression deformity of the superior endplate of T12 without significant vertebral body compression deformity. There is moderate narrowing of the anterior disc space at T11-T12. No significant listhesis. Lumbar disc spaces are intact and relatively well preserved and there are no other significant vertebral body compression deformities. XR/XR thoracolumbar junct [id number] IMPRESSION: Alteration of spinal curvature as above.
== END 2025-02-07 15:09 | disposition home or self-care (01) ==
PROVIDERS: PCP Nurse Practitioner Family; Visit Provider Nurse Practitioner Family
DX: M41.85 Other forms of scoliosis, thoracolumbar region (principal); M43.8X5 Other specified deforming dorsopathies, thoracolumbar region; M48.05 Spinal stenosis, thoracolumbar region
CPT/HCPCS: 72080

== ENCOUNTER 2025-04-11 14:42 | Outpatient (CLI) | payer BC, SELFPAY ==
--- NOTE | 2025-04-11 14:40 | MM_ITS ---
WS: [id number] BILATERAL 3D TOMOSYNTHESIS DIGITAL SCREENING MAMMOGRAPHY WITH CAD CLINICAL INFORMATION: SCREENING HISTORY: Screening mammogram. No current complaints. COMPARISON: 2023 TECHNIQUE: Bilateral CC and MLO views. FINDINGS: Scattered fibroglandular densities bilaterally. No suspicious focal mass, asymmetry, calcifications, or architectural distortion. No evidence of malignancy. A few incidental punctate calcifications. MM/MM scr tomosynthesis [id number] IMPRESSION: DENSITY: There are scattered areas of fibroglandular density. BI-RADS: 2 - Benign. FOLLOW UP: 1 Year Follow-up Recommend return to annual screening mammography.
== END 2025-04-11 14:43 | disposition home or self-care (01) ==
LOC: MOBLMAM 14:44
PROVIDERS: PCP Nurse Practitioner Family; Visit Provider Nurse Practitioner Family
DX: Z12.31 Encounter for screening mammogram for malignant neoplasm of breast (principal); R92.323 Mammographic fibroglandular density, bilateral breasts; R92.1 Mammographic calcification found on diagnostic imaging of breast
CPT/HCPCS: 77063; 77067